=== PATIENT | female | born 1960 | race Hispanic/Latino ===

== ENCOUNTER 2021-08-30 07:26 | Day surgery (SDC) | payer OTHER ==
[~2021-08-30] VITALS: Ht 157.5 cm; Wt 72.6 kg
[2021-08-30] MEDS ORDERED: [UNRECOGNIZED DRUG - OTHER] PO (07:57)
[2021-08-30 10:54] VITALS: BP 128/77
== END 2021-08-30 10:39 | disposition home or self-care (01) | DRG 951 ==
LOC: ENDO 07:26 → ORM 08:50 → ENDO 10:39
PROVIDERS: ATTEND Surgery
PROC: 0DJD8ZZ Inspection of Lower Intestinal Tract, Via Natural or Artificial Opening Endoscopic (ICD-10-PCS; principal; 2021-08-30)
PROC: 0DJ08ZZ Inspection of Upper Intestinal Tract, Via Natural or Artificial Opening Endoscopic (ICD-10-PCS; 2021-08-30)
DX: Z12.11 Encounter for screening for malignant neoplasm of colon (principal); R10.11 Right upper quadrant pain; Z87.19 Personal history of other diseases of the digestive system

== ENCOUNTER 2022-03-05 10:02 | Emergency (ER) | payer OTHER ==
[~2022-03-05] VITALS: Ht 157.5 cm; Wt 71.4 kg
[~2022-03-05 10:02] MED LIST: [UNRECOGNIZED DRUG - OTHER] PO
[2022-03-05 10:12] VITALS: BP 150/93
[2022-03-05 10:15] VITALS: BP 145/95
[2022-03-05] MEDS ORDERED: OMEPRAZOLE DR40 MG PO (10:39)
[2022-03-05] MEDS ORDERED: DICLOFENAC75 MG PO (10:39)
[2022-03-05] MEDS ORDERED: FLEXERIL5 M1 PO (10:39)
[2022-03-05] MEDS ORDERED: VOLTAREN1%GEL TOP (10:39)
[2022-03-05 10:46] VITALS: BP 145/95
[2022-03-06] MEDS ORDERED: NITROFURANTN100 M2 PO (18:31)
[2022-03-06] MEDS ORDERED: HYDROCO/APAP1 TA9 PO (18:31)
[2022-03-06] MEDS ORDERED: ZOFRAN4 MG/TAB PO (18:31)
== END 2022-03-05 10:53 | disposition home or self-care (01) | DRG 552 ==
LOC: ED 10:02
DX: M54.50 Low back pain, unspecified (principal)

== ENCOUNTER 2022-03-06 16:25 | Emergency (ER) | payer OTHER ==
[~2022-03-06] VITALS: Ht 157.5 cm; Wt 71.2 kg
[~2022-03-06 16:25] MED LIST changes: +DICLOFENAC75 MG PO; +FLEXERIL5 M1 PO; +OMEPRAZOLE DR40 MG PO; +VOLTAREN1%GEL TOP
[2022-03-06 16:34] VITALS: BP 147/94
[2022-03-06 16:45] VITALS: BP 129/86
[2022-03-06 17:30] LABS: HEMATOCRIT 38.5 % (37.0-47.0); HEMOGLOBIN 12.4 g/dl (12.0-16.0); IMMATURE GRANULOCYTES 0.2 % (0.0-5.0); MEAN CELL VOLUME 95.8 fL CALC (80.0-100.0); MEAN CORPUSCULAR HGB 30.8 pG CALC (26.0-32.0); MEAN CORPUSCULAR HGB CONC 32.2 g/dL CAL (32.0-36.0); NEUT# 3.58 thou/uL (2.00-7.15); RED BLOOD COUNT 4.02 mill/uL (4.20-5.60); RED CELL DISTRI WIDTH 12.9 % (11.5-15.5)
[2022-03-06 17:49] LABS: ALKALINE PHOSPHATASE 85 u/l (38-126); ANION GAP 13 (6-22 (CALC)); BILIRUBIN, TOTAL 0.8 mg/dL (0.0-1.4); BUN 18 mg/dL (7-17); BUN/CREATININE RATIO 22 (12-20 (CALC)); CARBON DIOXIDE 23 mmol/l (22-30); CHLORIDE 108 mmol/l (95-108); CREATININE 0.8 mg/dL (0.5-1.0); GFR FOR AFR.AMER. > 60 ML/MIN (>=60 (CALC)); GFR OTHER RACES > 60 ML/MIN (>=60 (CALC)); LIPASE 173 u/l (23-300); POTASSIUM 4.2 mmol/l (3.5-5.1); SGOT/AST 19 u/l (14-36); SODIUM 139 mmol/l (137-146)
[2022-03-06 18:14] LABS: URINE BILIRUBIN - DIPSTICK NEGATIVE (NEGATIVE); URINE BLOOD DIPSTICK TRACE-INTACT (NEGATIVE); URINE COLOR YELLOW; URINE GLUCOSE - DIPSTICK NEGATIVE (NEGATIVE); URINE KETONE NEGATIVE (NEGATIVE); URINE PH 5.5 (4.5-8.0); URINE PROTEIN - DIPSTICK NEGATIVE (NEG-TRACE); URINE UROBILINOGEN - DIPSTICK 0.2 E.U./dL (0.2)
[2022-03-06 18:16] LABS: URINE LEUK ESTERASE MODERATE (NEGATIVE); URINE NITRITE - DIPSTICK NEGATIVE (Negative)
[2022-03-06 18:19] LABS: URINE RENAL EPITHELIAL CELLS FEW hpf; URINE SQUAMOUS EPITHELIAL CELL FEW EPI/hpf (0-FEW); URINE WBC 20-50 WBC/hpf (0-5)
[2022-03-06] MEDS ORDERED: HYDROCO/APAP1 TA9 PO (18:31)
[2022-03-06] MEDS ORDERED: NITROFURANTN100 M2 PO (18:31)
[2022-03-06] MEDS ORDERED: ZOFRAN4 MG/TAB PO (18:31)
[2022-03-06 18:46] VITALS: BP 129/86
== END 2022-03-06 18:51 | disposition home or self-care (01) | DRG 552 ==
LOC: ED 16:25
PROVIDERS: Family Medicine
DX: M54.50 Low back pain, unspecified (principal); N39.0 Urinary tract infection, site not specified; B95.1 Streptococcus, group B, as the cause of diseases classified elsewhere
CPT/HCPCS: Q9967